=== PATIENT | female | born 1970 | race Two or more races ===

== ENCOUNTER 2020-06-14 10:42 | Day surgery (SDC) | payer BC ==
[2020-06-14] VITALS (8 sets, daily range): BP systolic 121–136; BP diastolic 75–95
[~2020-06-14] VITALS: Ht 166.4 cm; Wt 55.8 kg
--- NOTE | 2020-06-14 10:21 | Anethesia Preoperative Eval ---
Anesthesia Pre-op PMH/ROS General Date of Evaluation: Jun 14, 2020 Anesthesiologist: Jase ASA Score: ASA 1 Mallampati Score Class I : Soft palate, uvula, fauces, pillars visible Class II: Soft palate, uvula, fauces visible Class III: Soft palate, base of uvula visible Class IV: Only hard plate visible Mallampati Classification: Class II Surgeon: Cathy Diagnosis: Hemorrhoids Surgical Procedure: Hemorrhoidectomy Anesthesia History: none Family History: no anesthesia problems Allergies: Coded Allergies: No Known Allergies (Unverified , 06/14/20) Medications: see eMAR Patient NPO?: Yes NPO Date: Jun 14, 2020 NPO Time: 00:00 Past Medical History Cardiovascular: Denies: HTN, CAD, NM, valve dz, arrhythmia, other Pulmonary: Denies: asthma, COPD, ALISE, other Gastrointestinal/Genitourinary: Reports: other - uterine fibroids, hemorrhoids; Denies: GERD, CRI, ESRD Neurologic/Psychiatric: Denies: dementia, CVA, depression/anxiety, TIA, other Endocrine: Denies: DM, hypothyroidism, steroids, other HEENT: Denies: cataract (L), cataract (R), glaucoma, WASHOE (L), WASHOE (R), other Hematology/Immune: Denies: anemia, DVT, bleeding disorder, other Musculoskeletal/Integumentary: Denies: OA, RA, DJD, DDD, edema, other PSxH Narrative: bilateral blepharoplasty, FAITH Anesthesia Pre-op Phys. Exam Physician Exam see chart Constitutional: NAD Cardiovascular: RRR Respiratory: CTA Airway Exam Mallampati Score: Class II MO: full ROM: full Teeth: intact Anesthesia Pre-op A/P Labs see chart Risk Assessment & Plan Assessment: ASA I Plan: MAC Status Change Before Surgery: No Pre-Antibiotics Drug: Cefoxitin 1g Given Within 1 Hr of Incision: Yes Viktoria Laguna MD Jun 14, 2020 10:21
[~2020-06-14 10:42] MED LIST: EPINEPHrine 1mg/1ml Amp ONE; Ropivacaine 5mg/ml Vial 30ml INJ ONE
--- NOTE | 2020-06-14 11:00 | Pre-Procedure Note/Attestation ---
Pre-Procedure Note/Attestation Complete Prior to Procedure Planned Procedure: not applicable Procedure Narrative: Hemorrhoidectomy with fissurectomy Indications for Procedure Pre-Operative Diagnosis: Hemorrhoids and anal fissure Attestation I attest that I discussed the nature of the procedure; its benefits; risks and complications; and alternatives (and the risks and benefits of such alt ernatives), prior to the procedure, with the patient (or the patient's legal manufacturers service representative). I attest that, if there was a reasonable possibility of needing a blood transfusion, the patient (or the patient's legal manufacturers service representative) was given the [facility] standardized written summary, pursuant to the [place]ino Oppelo Blood Safety Act ([place] Health and Safety Code # 1645, as amended). I attest that I re-evaluated the patient just prior to the surgery and that there has been no change in the patient's H&P, except as documented below: Yvonne Morgan MD Jun 14, 2020 11:00
[2020-06-14] MEDS ORDERED: cefOXitin 1gm Inj ONE (12:07)
[2020-06-14] MEDS ORDERED: Lidocaine 1% MPF 10mg/ml 5ml ONE (12:13)
[2020-06-14] MEDS ORDERED: fentaNYL 100 mcg/2 mL IV ONE (12:13)
[2020-06-14] MEDS ORDERED: Midazolam 2mg/2ml Inj ONE (12:13)
[2020-06-14] MEDS ORDERED: fentaNYL 100 mcg/2 mL IV PRN (12:15)
[2020-06-14] MEDS ORDERED: DiphenhydrAMINE 50mg/ml Inj IVP PRN (12:15)
[2020-06-14] MEDS ORDERED: Midazolam 2mg/2ml Inj IVP PRN (12:15)
[2020-06-14] MEDS ORDERED: Ketorolac 30mg Inj IV PRN (12:15)
[2020-06-14] MEDS ORDERED: LORazepam Inj 2mg/ml 1ml IV PRN (12:15)
[2020-06-14] MEDS ORDERED: Labetalol 5mg/ml 20ml vial IV PRN (12:15)
[2020-06-14] MEDS ORDERED: Hydromorphone 0.5mg/0.5ml inj IVP PRN (12:15)
[2020-06-14] MEDS ORDERED: LR 1000ml 1,000 ML IVLG SCH (12:15)
[2020-06-14] MEDS ORDERED: Sterile Water Irrig 1000ml IRRIG ONE (12:30)
[2020-06-14] MEDS ORDERED: NS Irrig 1000ml ONE (12:30)
[2020-06-14] MEDS ORDERED: LR 1000ml ONE (12:30)
[2020-06-14] MEDS ORDERED: DiphenhydrAMINE 50mg/ml Inj ONE (12:35)
--- NOTE | 2020-06-14 13:20 | Immediate Post-Op Evaluation ---
Immediate Post-Op Evalulation Immediate Post-Op Evalulation Procedure: Hemorrhoidectomy Date of Evaluation: Jun 14, 2020 Time of Evaluation: 13:21 IV Fluids: 500 Blood Products: 0 Estimated Blood Loss: min Urinary Output: 0 Blood Pressure Systolic: 124 Blood Pressure Diastolic: 76 Pulse Rate: 72 Respiratory Rate: 16 O2 Sat by Pulse Oximetry: 99 Temperature (Fahrenheit): 97.7 Pain Score (1-10): 0 Nausea: No Vomiting: No Complications 0 Patient Status: awake, reacts, patent, none Hydration Status: adequate Drug: cefoxiti 1g Given Within 1 Hr of Incision: Yes Viktoria Laguna MD Jun 14, 2020 13:19
--- NOTE | 2020-06-14 13:20 | 48 Hour Post Anesthesia Eval ---
Post Anesthesia Evaluation Procedure: Hemorrhoidectomy Date of Evaluation: Jun 14, 2020 Airway: patent Nausea: No Vomiting: No Hydration Status: adequate Cardiopulmonary Status: at baseline Mental Status/LOC: patient returned to baseline Post-Anesthesia Complications: 0 Follow-up care needed: ready to discharge Viktoria Laguna MD Jun 14, 2020 13:20
--- NOTE | 2020-06-14 13:23 | Brief Operative Note ---
Immediate Post Operative Note Operative Note Chief Complaint: Hemorrhoids and anal fissure Pre-op Diagnosis: Hemorrhoids and anal fissure Procedure: Hemorrhoidectomy with anal fissurectomy with tag excision Post-op Diagnosis: Hemorrhoids and anal fissure Post-op Diagnosis: same as pre-op Findings: consistent w/pre-op dx studies Surgeon: Yvonne Morgan MD Anesthesiologist: Viktoria Laguna MD Anesthesia: moderate sedation Specimen: yes Complications: none Condition: stable Fluids: see anesthesia record Estimated Blood Loss: minimal Drains: none Implant(s) used?: No Yvonne Morgan MD Jun 14, 2020 13:23
--- NOTE | 2020-06-14 15:00 | Operative Note - Dictated ---
DATE OF OPERATION: 06/14/2020 PREOPERATIVE DIAGNOSES: Hemorrhoids with anal skin tag and chronic anal fissure. POSTOPERATIVE DIAGNOSES: Hemorrhoids with anal skin tag and chronic anal fissure. PROCEDURE: Hemorrhoidectomy with anal fissurectomy and anal skin tag excision. SURGEON: Yvonne Morgan MD. ANESTHESIOLOGIST: Viktoria Laguna MD. ANESTHESIA: Propofol sedation with local anesthetic. INDICATION FOR PROCEDURE: The patient is a 49-year-old female who was seen by me earlier this year for discomfort with large external anal skin tag with chronic anal fissure and hemorrhoids. The patient has had been having these symptoms for over 20 years but is getting worse with the pain and discomfort. The patient was found to have a large external anal skin tag with hemorrhoid in the posterior midline along with chronic anal fissure. It was determined at this time to proceed with excision under sedation. DESCRIPTION OF PROCEDURE: Upon consent of the patient, the patient was brought to the operating room, placed in the prone lala-knife position on the operating table. Once adequate sedation had been established with a propofol drip, the patient's buttocks were prepped and draped in the usual standard surgical fashion. A 30 mL of 0.5% ropivacaine with epinephrine mixed with 6 mg of dexamethasone was used as a perianal and pudendal block. A Hill-Meek retractor was placed into the anal canal and there was noted to be moderate-sized internal hemorrhoids circumferentially but there was a large internal hemorrhoid in the posterior midline along with the chronic anal fissure and an external anal skin tag. This was excised in elliptical fashion and sent off the field as a specimen. The mucosal defect was closed with a running 3-0 Monocryl suture. The anal canal was then irrigated and hemostasis was confirmed. An ice pack was used for postop swelling. Sponge, needle, and instrument counts were correct at the end of the case. The patient was awakened from anesthesia and brought to postanesthesia recovery room in stable condition. ESTIMATED BLOOD LOSS: Less than 5 mL. DRAINS: None. SPECIMEN: Hemorrhoid with fissure and skin tag. COMPLICATIONS: None. Yvonne Morgan M.D. DR: Suzanne JOB#: [id number] CC: Yvonne Morgan M.D.; Fax#: [phone] MD Pam Billy MD
== END 2020-06-14 14:25 | disposition home or self-care (01) ==
LOC: SUR 10:42
DX: K64.8 Other hemorrhoids (principal); K64.4 Residual hemorrhoidal skin tags; K60.1 Chronic anal fissure
CPT/HCPCS: 46257; 81025; 94003; J0171; J0694; J1100; J1200; J2250; J2704; J2795; J3010; J7120; 94150